=== PATIENT | male | born 1960 | race Caucasian/White ===

== ENCOUNTER 2017-05-21 05:47 | Emergency (ER) | payer OTHER ==
[~2017-05-21] VITALS: Ht 185.4 cm; Wt 116.4 kg
[~2017-05-21 05:47] MED LIST: CHOL10003 PO; LISI-170 PO; LORA10CA PO; OMEG1CAP34 PO; OMEP10CA2 PO; PSEU120T9 PO; TRAZ50TA18 PO; ZOLP10TA PO; magnesium PO
[2017-05-21] MEDS ORDERED: SODIUM CHLORIDE 0.9% 1,000 ML IV ONE (06:12)
[2017-05-21 06:25] LABS: BASOPHILS # (AUTO) 0.01 x10^3/uL (0-0.1); BASOPHILS % (AUTO) 0 % (0-1); EOSINOPHILS # (AUTO) 0.02 x10^3/uL (0-0.4); EOSINOPHILS % (AUTO) 0 % (1-7); LYMPHOCYTES % (AUTO) 6 % (22-44); MD NO; MEAN CORPUSCULAR HEMOGLOBIN 32.7 pg (27.5-34.5); MEAN CORPUSCULAR HGB CONC 34.1 g/dL (33.2-36.2); MEAN CORPUSCULAR VOLUME 95.9 fL (81-97); MEAN PLATELET VOLUME 7.6 fL (7.4-10.4); MONOCYTES # (AUTO) 0.48 x10^3/uL (0.2-0.8); MONOCYTES % (AUTO) 4 % (2-9); NEUTROPHILS # (AUTO) 10.48 x10^3/uL (1.8-6.8); NEUTROPHILS % (AUTO) 90 % (42-75); PLATELET COUNT 253 x10^3/uL (130-400); RED BLOOD COUNT 5.04 x10^6/uL (4.38-5.82); RED CELL DISTRIBUTION WIDTH 12.5 % (9.4-14.8)
[2017-05-21] MEDS ORDERED: SODIUM CHLORIDE 0.9% 1,000ML IVBOLUS ONE (06:30)
[2017-05-21 06:37] LABS: ALANINE AMINOTRANSFERASE 72 U/L (12-78); ALBUMIN 4.2 g/dL (3.4-5.0); ANION GAP 9 mmol/L (5-15); CALCIUM 9.1 mg/dL (8.5-10.1); CHLORIDE 106 mmol/L (98-107); CREATININE 1.17 mg/dL (0.7-1.3)
[2017-05-21 06:40] LABS: ALKALINE PHOSPHATASE 39 U/L (45-117); BILIRUBIN,TOTAL 0.6 mg/dL (0.2-1.0); TOTAL PROTEIN 7.2 g/dL (6.4-8.2)
[2017-05-21] MEDS ORDERED: OMNIPAQUE 350 MG/ML, 100ML BOTTLE ONE (08:17)
[2017-05-21 08:37] VITALS: BP 113/69
[2017-05-21 09:35] LABS: MICROSCOPIC NOT IND
[2017-05-21 09:38] LABS: CULTURE INDICATED? NO
== END 2017-05-21 10:19 | disposition home or self-care (01) ==
LOC: ED 06:55
DX: K59.00 Constipation, unspecified (principal); I10 Essential (primary) hypertension; K21.9 Gastro-esophageal reflux disease without esophagitis; K80.20 Calculus of gallbladder without cholecystitis without obstruction; Z90.49 Acquired absence of other specified parts of digestive tract
CPT/HCPCS: 36415; 74022; 74177; 80053; 81003; 83690; 85025; 96360; 96361; 99285; J7030; Q9967

== ENCOUNTER 2018-10-01 08:39 | Day surgery (SDC) | payer OTHER ==
[~2018-10-01] VITALS: Ht 185.4 cm; Wt 111.4 kg
[~2018-10-01 08:39] MED LIST changes: -TRAZ50TA18 PO; +TRAZ50TA66 PO
[2018-10-01] MEDS ORDERED: SODIUM CHLORIDE 0.9% 1,000 ML IV SCH (09:00)
[2018-10-01 09:05] VITALS: BP 130/88
[2018-10-01] MEDS ORDERED: RIVA20TA PO (09:14)
[2018-10-01] MEDS ORDERED: TRIA10.8 INH (09:14)
[2018-10-01] MEDS ORDERED: POLY17PO5 PO (09:14)
[2018-10-01] MEDS ORDERED: FEXO60TA24 PO (09:14)
[2018-10-01] MEDS ORDERED: PLEASE ENTER HEIGHT AND WEIGHT MC SCH (09:30)
[2018-10-01 09:52] LABS: ANION GAP 6 mmol/L (5-15); CALCIUM 9.2 mg/dL (8.5-10.1); CHLORIDE 107 mmol/L (98-107); CREATININE 1.23 mg/dL (0.7-1.3)
[2018-10-01] MEDS ORDERED: PROPOFOL 10 MG/ML, 20ML ONE (16:04)
== END 2018-10-01 12:57 | disposition home or self-care (01) ==
LOC: CACL 08:39
PROVIDERS: ATTEND Internal Medicine Cardiovascular Disease
DX: I48.92 Unspecified atrial flutter (principal); I45.89 Other specified conduction disorders; I10 Essential (primary) hypertension; E78.5 Hyperlipidemia, unspecified; K21.9 Gastro-esophageal reflux disease without esophagitis; E66.9 Obesity, unspecified; Z68.32 Body mass index [BMI] 32.0-32.9, adult; Z72.89 Other problems related to lifestyle; Z79.01 Long term (current) use of anticoagulants; Z79.899 Other long term (current) drug therapy; Z88.0 Allergy status to penicillin; Z98.890 Other specified postprocedural states; Z82.49 Family history of ischemic heart disease and other diseases of the circulatory system
CPT/HCPCS: 36415; 80048; 92960; 93005; 93312; 93321; 93325; J2704

== ENCOUNTER → 2018-10-23 | Outpatient (CLI) | payer OTHER ==
[~2018-10-23] MED LIST changes: +FEXO60TA24 PO; +POLY17PO5 PO; +REGADENOSON 0.4 MG/5 ML SYRINGE ONE; +RIVA20TA PO; +TRIA10.8 INH
== END | disposition home or self-care (01) ==
LOC: CFH 08:27
PROVIDERS: ATTEND Internal Medicine Cardiovascular Disease
DX: I10 Essential (primary) hypertension (principal); R07.89 Other chest pain
CPT/HCPCS: 78452; 93017; A9502; J2785

== ENCOUNTER 2018-12-12 06:35 | Day surgery (SDC) | payer OTHER ==
[~2018-12-12] VITALS: Ht 185.4 cm; Wt 110.5 kg
[2018-12-12 07:12] VITALS: BP 128/84
== END 2018-12-12 09:00 | disposition home or self-care (01) ==
LOC: CACL 06:35
PROVIDERS: ATTEND Internal Medicine Cardiovascular Disease
DX: I48.92 Unspecified atrial flutter (principal); I48.91 Unspecified atrial fibrillation; I10 Essential (primary) hypertension; E78.5 Hyperlipidemia, unspecified; Z72.89 Other problems related to lifestyle; Z79.01 Long term (current) use of anticoagulants; Z79.899 Other long term (current) drug therapy; Z88.0 Allergy status to penicillin; Z90.49 Acquired absence of other specified parts of digestive tract; Z98.890 Other specified postprocedural states; Z82.49 Family history of ischemic heart disease and other diseases of the circulatory system
CPT/HCPCS: 92960; J2704

== ENCOUNTER 2019-08-12 13:09 | Outpatient (CLI) | payer OTHER ==
[~2019-08-12 13:09] MED LIST changes: +METO25TA91 PO; -REGADENOSON 0.4 MG/5 ML SYRINGE ONE; +SILD100T PO
[2019-08-12] MEDS ORDERED: OMNIPAQUE 350 MG/ML, 100ML BOTTLE ONE (14:02)
== END 2019-08-12 23:59 | disposition home or self-care (01) ==
LOC: CFH 13:09
PROVIDERS: ATTEND Internal Medicine Cardiovascular Disease
DX: G45.9 Transient cerebral ischemic attack, unspecified (principal); I48.92 Unspecified atrial flutter
CPT/HCPCS: 70470; 82565; Q9967

== ENCOUNTER 2019-09-26 06:08 | Observation (INO) | payer OTHER ==
[~2019-09-26] VITALS: Ht 185.4 cm; Wt 111.7 kg
[2019-09-26] MEDS ORDERED: SODIUM CHLORIDE 0.9% 1,000 ML IV SCH (06:23)
[2019-09-26 06:30] VITALS: BP 131/79
[2019-09-26] MEDS ORDERED: SODIUM CHLORIDE 0.9% 1,000 ML IV ONE (06:30)
[2019-09-26 06:52] LABS: BASOPHILS # (AUTO) 0.02 x10^3/uL (0-0.1); BASOPHILS % (AUTO) 1 % (0-1); EOSINOPHILS # (AUTO) 0.06 x10^3/uL (0-0.4); EOSINOPHILS % (AUTO) 1 % (1-7); LYMPHOCYTES # (AUTO) 1.11 x10^3/uL (1-3.4); LYMPHOCYTES % (AUTO) 24 % (22-44); MD NO; MEAN CORPUSCULAR HEMOGLOBIN 33.1 pg (27.5-34.5); MEAN CORPUSCULAR VOLUME 97.4 fL (81-97); MEAN PLATELET VOLUME 7.7 fL (7.4-10.4); MONOCYTES # (AUTO) 0.54 x10^3/uL (0.2-0.8); MONOCYTES % (AUTO) 12 % (2-9); NEUTROPHILS # (AUTO) 2.88 x10^3/uL (1.8-6.8); NEUTROPHILS % (AUTO) 63 % (42-75); PLATELET COUNT 282 x10^3/uL (130-400); RED BLOOD COUNT 4.98 x10^6/uL (4.38-5.82); RED CELL DISTRIBUTION WIDTH 12.7 % (9.4-14.8)
[2019-09-26 07:03] LABS: ANION GAP 7 mmol/L (5-15); CHLORIDE 109 mmol/L (98-107); CREATININE 1.21 mg/dL (0.7-1.3)
[2019-09-26] MEDS ORDERED: MIDAZOLAM 1 MG/ML, 2ML ONE (07:53)
[2019-09-26] MEDS ORDERED: FENTANYL PF 250 MCG/5ML ONE (07:54)
[2019-09-26] MEDS ORDERED: ROCURONIUM 10MG/ML,5ML ONE (07:56)
[2019-09-26] MEDS ORDERED: PROPOFOL 10 MG/ML, 20ML ONE (07:56)
[2019-09-26] MEDS ORDERED: DEXAMETHASONE 4 MG/ML, 1ML ONE (07:56)
[2019-09-26] MEDS ORDERED: HEPARIN 1,000 UNITS/ML, 10ML ONE ×5 (07:57→10:46)
[2019-09-26] MEDS ORDERED: EPHEDRINE 50 MG/ML, 1ML ONE (08:40)
[2019-09-26] MEDS ORDERED: VASOPRESSIN 20 UNIT/ML, 1ML ONE (09:08)
[2019-09-26] MEDS ORDERED: SUGAMMADEX 200 MG/2 ML IVPush ONE (12:25)
[2019-09-26] MEDS ORDERED: ZOLPIDEM 10MG TABLET PO PRN (12:30)
[2019-09-26] MEDS ORDERED: ACETAMINOPHEN 325 MG TABLET PO PRN ×2 (12:30→13:00)
[2019-09-26] MEDS ORDERED: MEPERIDINE/PF 25MG/0.5ML IVPush PRN (13:00)
[2019-09-26] MEDS ORDERED: HYDROmorphone 1 MG/ML, 1ML INJ IVPush PRN (13:00)
[2019-09-26] MEDS ORDERED: DIAZEPAM 5 MG/ML, 2ML IVPush PRN (13:00)
[2019-09-26] MEDS ORDERED: ONDANSETRON 2MG/ML, 2ML IVPush PRN (13:00)
[2019-09-26] MEDS ORDERED: DIPHENHYDRAMINE 50 MG/ML, 1ML IVPush PRN (13:00)
[2019-09-26] MEDS ORDERED: FENTANYL PF 100 MCG/2ML IV PRN (13:00)
[2019-09-26] MEDS ORDERED: EPHEDRINE 50 MG/ML, 1ML IVPush PRN (13:00)
[2019-09-26] MEDS ORDERED: LABETALOL 5MG/ML, 20ML IV PRN (13:00)
[2019-09-26] MEDS ORDERED: ALBUTEROL SULFATE 2.5 MG/3 ML NPPB PRN (13:00)
[2019-09-26] MEDS ORDERED: PROMETHAZINE 25 MG/ML, 1ML IVPush PRN (13:00)
[2019-09-26] MEDS ORDERED: PROMETHAZINE 12.5 MG SUPP PR PRN (13:00)
[2019-09-26] MEDS ORDERED: OXYcodone 5 MG/5 ML ORAL.SOL UDC PO PRN (13:00)
[2019-09-26] MEDS ORDERED: hydrALAzine 20 MG/ML, 1ML IV PRN (13:00)
[2019-09-26] MEDS ORDERED: MIDAZOLAM 1 MG/ML, 2ML IV PRN (13:00)
[2019-09-26] MEDS: COLCHICINE 0.6 MG CAPSULE PO SCH (20:54)
[2019-09-26] MEDS ORDERED: RIVAROXABAN 20 MG TABLET PO SCH (21:00)
[2019-09-26 21:11] VITALS: BP 119/78
[2019-09-26 23:26] VITALS: BP 120/81
[2019-09-27] MEDS ORDERED: OMEPRAZOLE 20 MG CAPSULE.DR PO SCH (07:00)
[2019-09-27 07:31] VITALS: BP 118/70
[2019-09-27] MEDS ORDERED: RIVAROXABAN 20 MG TABLET PO SCH (08:00)
[2019-09-27] MEDS ORDERED: METOPROLOL SUCCINATE 50 MG TAB.ER.24H PO SCH (09:00)
[2019-09-27] MEDS ORDERED: CETIRIZINE 10 MG TABLET PO SCH (09:00)
[2019-09-27] MEDS: COLCHICINE 0.6 MG CAPSULE PO SCH (09:08)
[2019-09-27] MEDS ORDERED: COLC0.6C3 PO (10:21)
[2019-09-28] MEDS ORDERED: POLYETHYLENE GLYCOL 17 GM PACKET PO SCH (09:00)
== END 2019-09-27 12:03 | disposition home or self-care (01) ==
LOC: CACL 06:08 → INTOOBSV 12:09 → ORIP 12:09 → 5SO 13:43 → DCLOUNGE 09-27 11:55
PROVIDERS: ADMIT Internal Medicine Cardiovascular Disease; ATTEND Internal Medicine Cardiovascular Disease
DX: Z03.818 Encounter for observation for suspected exposure to other biological agents ruled out (principal); I48.0 Paroxysmal atrial fibrillation; I48.92 Unspecified atrial flutter; D68.69 Other thrombophilia; N52.9 Male erectile dysfunction, unspecified; I11.9 Hypertensive heart disease without heart failure; E66.9 Obesity, unspecified; E78.5 Hyperlipidemia, unspecified; K21.9 Gastro-esophageal reflux disease without esophagitis; I77.819 Aortic ectasia, unspecified site; Z79.01 Long term (current) use of anticoagulants; Z79.899 Other long term (current) drug therapy; Z86.73 Personal history of transient ischemic attack (TIA), and cerebral infarction without residual deficits
CPT/HCPCS: 36415; 80048; 85025; 85347; 93306; 93312; 93321; 93325; 93613; 93655; 93656; 93662; C1730; C1732; C1759; C1766; C1893; C1894; G0378; J1100; J1644; J2250; J2704; J3010; U0001